=== PATIENT | male | born 2000 | race Caucasian/White ===

== ENCOUNTER 2022-06-03 19:36 | Emergency (ER) | payer MEDICAID, OTHER ==
[~2022-06-03] VITALS: Ht 185.4 cm; Wt 66.8 kg
[2022-06-03 21:29] VITALS: BP 115/74
[2022-06-03] MEDS ORDERED: HYDROcodone-ACET 5/325MG TAB PO ONE (22:00)
[2022-06-03] MEDS ORDERED: cefTRIAXone SOD 1,000 MG VL IM ONE (22:00)
[2022-06-03] MEDS ORDERED: ONDANSETRON ODT 4 MG TAB PO ONE (22:00)
[2022-06-03] MEDS ORDERED: ONDA-144 PO (22:02)
[2022-06-03] MEDS ORDERED: HYDR-4902 PO (22:02)
== END 2022-06-03 22:29 | disposition home or self-care (01) ==
LOC: ER 19:36
DX: H66.92 Otitis media, unspecified, left ear (principal); Z79.899 Other long term (current) drug therapy
CPT/HCPCS: 96372; 99283; J0696; Q0162

== ENCOUNTER 2022-07-05 02:22 | Emergency (ER) | payer OTHER ==
[~2022-07-05] VITALS: Ht 185.4 cm; Wt 61.2 kg
[~2022-07-05 02:22] MED LIST: HYDR-4902 PO; ONDA-144 PO
[2022-07-05] MEDS ORDERED: AMPICILLIN & SULBACTAM SODIUM 3 GM in SODIUM CHL 0.9% 100 ML IV ONE (03:00)
[2022-07-05] MEDS ORDERED: SODIUM CHLORIDE 0.9% 500 ML IV ONE (03:00)
[2022-07-05] MEDS ORDERED: DexAMETHasone SOD PHOS 10MG/1ML VIAL INJ IV ONE (03:00)
[2022-07-05] MEDS ORDERED: PIPERACILLIN-TAZOB 3.375GM 100 ML IV ONE (03:30)
[2022-07-05 03:39] LABS: Basophils # (auto) 0 10 ^3/uL (0-0.2); Basophils % (auto) 0.2 % (0.0-2.0); Eosinophils # (auto) 0 10 ^3/uL (0-0.8); Hematocrit 40.8 % (41.0-53.0); Hemoglobin 13.9 g/dL (13.5-17.5); Lymphocytes # (auto) 1.4 10 ^3/uL (0.4-5.4); Lymphocytes % (auto) 6.6 % (10.0-50.0); Mean Corpuscular Hemoglobin 30.5 pg (28.0-32.0); Mean Corpuscular Volume 89.7 fL (80.0-100.0); Monocytes # (auto) 1.9 10 ^3/uL (0-1.3); Monocytes % (auto) 8.9 % (0.0-12.0); Neutrophils # (auto) 18.2 10 ^3/uL (1.6-8.6); Neutrophils % (auto) 84.3 % (37.0-80.0); Red Blood Cells 4.55 10^6/uL (4.5-5.90); Red Cell Distribution Width 12.9 % (11.8-14.3); White Blood Cell 21.5 10^3/uL (4.4-10.8)
[2022-07-05 03:56] LABS: Albumin 3.9 g/dL (3.4-5.0); Calcium 8.9 mg/dL (8.5-10.1); Potassium 4.1 mmol/L (3.5-5.1)
[2022-07-05 03:59] LABS: BUN/Creatinine Ratio 13.8; Bilirubin, Total 1.2 mg/dL (0.2-1.0); Total Protein 7.6 g/dL (6.4-8.2)
[2022-07-05] MEDS ORDERED: IOHEXOL 300 MG/ML 100ML BOTTLE IJ ONE (04:19)
[2022-07-05 08:28] LABS: Urine Bacteria NONE SEEN /hpf (None Seen); Urine Blood Negative /uL (Negative); Urine WBC <1 /hpf (0 - 3)
[2022-07-05 12:00] VITALS: BP 93/57
[2022-07-05] MEDS ORDERED: CEFD300C2 PO (12:34)
[2022-07-05] MEDS ORDERED: DICL50TA2 PO (12:34)
[2022-07-05] MEDS ORDERED: HYDR-4902 PO (12:34)
== END 2022-07-05 12:29 | disposition home or self-care (01) ==
LOC: ER 02:28
DX: J03.90 Acute tonsillitis, unspecified (principal); M54.2 Cervicalgia; T50.905A Adverse effect of unspecified drugs, medicaments and biological substances, initial encounter; Y92.89 Other specified places as the place of occurrence of the external cause
CPT/HCPCS: 36415; 70491; 80053; 81001; 85025; 86308; 87880; 96365; 96366; 96375; 99285; J1100; J2543; J7040; Q9967